=== PATIENT | female | born 2000 | race Hispanic/Latino ===

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

== ENCOUNTER 2019-11-25 03:01 | Emergency (ER) | payer BC ==
--- OUTSIDE RECORDS SUMMARY | 2019-11-25 03:04 | XMS REPORT | Continuity of Care Document ---
:2000 Author Organization [facility] t Address [address] [place] [address] Dr. Luis [address] [place] [id number] Care Team Providers Name Role Phone Unavailable Unavailable Unavailable Problems This patient has no known problems. Allergies, Adverse Reactions, Alerts This patient has no known allergies or adverse reactions. Medications This patient has no known medications. Procedures This patient has no known procedures. Results This patient has no known results.
[2019-11-25] MEDS ORDERED: KETOROLAC 30 MG/ML INJ ONE (04:30)
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
[2019-11-25 04:53] VITALS: TEMP 98.8
[2019-11-25 04:55] VITALS: O2SAT 99
[2019-11-25 04:56] VITALS: BP 112/89
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
== END 2019-11-25 04:49 | disposition home or self-care (01) ==
LOC: ER 03:01
DX: S02.2XXA Fracture of nasal bones, initial encounter for closed fracture (principal); S00.93XA Contusion of unspecified part of head, initial encounter; Y04.2XXA Assault by strike against or bumped into by another person, initial encounter; Y93.9 Activity, unspecified; Y92.9 Unspecified place or not applicable
CPT/HCPCS: 70450; 70486; 76377; 99284

== ENCOUNTER 2022-05-21 21:03 | Emergency (ER) | payer SELFPAY ==
--- OUTSIDE RECORDS SUMMARY | 2022-05-21 21:06 | XMS REPORT | Continuity of Care Document ---
:2000 Author Organization [facility] t Address [address] [place] [address] Dr. Luis [address] [place] [id number] Care Team Providers Name Role Phone Unavailable Unavailable Unavailable Problems This patient has no known problems. Allergies, Adverse Reactions, Alerts This patient has no known allergies or adverse reactions. Medications This patient has no known medications. Procedures This patient has no known procedures. Results This patient has no known results.
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
[2022-05-21] MEDS ORDERED: LIDOCAINE VISCOUS 2% SOLN 15 ML UDC ONE ×2 (22:15→22:20)
[2022-05-21] MEDS ORDERED: TDAP (DIPHTH,PERTUSS(ACELL),TET VAC) 0.5 ML VIAL IMVAC ONE (22:20)
--- NOTE | 2022-05-21 23:28 | EDPHYS ---
Physician Documentation [facility] Name: Troy Hinds Age: 22 yrs Sex: Female : 2000 Arrival Date: 05/21/2022 Time: 21:05 Bed 24 Private MD: ED Physician Dilip Champagne HPI: 05/21 22:15 This 22 yrs old Female presents to ER via Ambulatory with complaints of Head kb Injury With LOC-Adult. 22:15 The patient or guardian reports a laceration, 3 cm(s), clean, pain. The complaints kb affect the left frontal area. Context of injury: The problem was sustained at home, resulted from a direct blow. Onset: The symptoms/episode began/occurred just prior to arrival. Associated signs and symptoms: Loss of consciousness: This patient experience a loss of consciousness, that was brief, Pertinent positives: loss of conciousness. Severity of symptoms: At their worst the symptoms were mild, in the emergency department the symptoms are unchanged. The patient has not experienced similar symptoms in the past. The patient has not recently seen a physician. Pt reports she was getting the sweetie tree out of the attic when she was startled and jumped hitting her head on a nail. Reports she pulled the nail out and might have had brief loc. . 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 - Social history:: Smoking status: Patient denies any tobacco usage or history of. ROS: 22:14 Constitutional: Negative for fever, chills, and weight loss. kb 22:14 Skin: Positive for laceration(s), of the left frontal area. 22:14 Neuro: Positive for loss of consciousness. 22:14 All other systems are negative. Exam: 22:14 Constitutional: This is a well developed, well nourished patient who is awake, alert, kb and in no acute distress. Head/Face: Normocephalic, atraumatic. Eyes: Pupils equal round and reactive to light, extra-ocular motions intact. Lids and lashes normal. Conjunctiva and sclera are non-icteric and not injected. Cornea within normal limits. Periorbital areas with no swelling, redness, or edema. ENT: Moist Mucous membranes Cardiovascular: Regular rate and rhythm with a normal S1 and S2. No gallops, murmurs, or rubs. No pulse deficits. Respiratory: Respirations even and unlabored. No increased work of breathing. Talking in full sentences Abdomen/GI: Soft, non-tender. No distention MS/ Extremity: Pulses equal, no cyanosis. Neurovascular intact. Full, normal range of motion. Neuro: Awake and alert, GCS 15, oriented to person, place, time, and situation. Moves all extremities. Normal gait. Psych: Awake, alert, with orientation to person, place and time. Behavior, mood, and affect are within normal limits. 22:14 Skin: injury, laceration(s), the wound is approximately 3 cm(s), of the left frontal area, that can be described as clean, no foreign body, linear, without bleeding. Vital Signs: 21:58 BP 116 / 81; Pulse 81; Resp 16 S; Temp 99.1(O); Pulse Ox 100% on R/A; Weight 58.97 kg bb (R); Height 5 ft. 4 in. (162.56 cm) (R); Pain 10/10; 23:00 BP 124 / 76; Pulse 78; Resp 18; Pulse Ox 100% on R/A; em6 21:58 Body Mass Index 22.31 (58.97 kg, 162.56 cm) bb Stinnett Coma Score: 21:58 Eye Response: spontaneous(4). Verbal Response: oriented(5). Motor Response: obeys bb commands(6). Total: 15. 22:15 Eye Response: spontaneous(4). Verbal Response: oriented(5). Motor Response: obeys kb commands(6). Total: 15. 22:15 Eye Response: spontaneous(4). Verbal Response: oriented(5). Motor Response: obeys kb commands(6). Total: 15. Trauma Score (Adult): 21:58 Eye Response: spontaneous(1); Verbal Response: oriented(1); Motor Response: obeys bb commands(2); Systolic BP: > 89 mm Hg(4); Respiratory Rate: 10 to 29 per min(4); Marichuy Score: 15; Trauma Score: 12 Laceration: 23:26 Wound Repair of 3cm ( 1.2in ) subcutaneous laceration to left frontal area. Linear kb shaped.. Distal neuro/vascular/tendon intact. Wound prep: Extensive cleansing with hibiclenz by nurse, Wound irrigation with saline by nurse. Skin closed with 3 1-0 Carlos using staple gun. Patient tolerated well. MDM: 21:32 Patient medically screened. kb 22:15 Data reviewed: vital signs, nurses notes. Data interpreted: Pulse oximetry: on room air kb is 100 %. Interpretation: normal. Counseling: I had a detailed discussion with the patient and/or guardian regarding: the historical points, exam findings, and any diagnostic results supporting the discharge/admit diagnosis, radiology results, the need for outpatient follow up, a family practitioner, to return to the emergency department if symptoms worsen or persist or if there are any questions or concerns that arise at home. 05/21 21:26 Order name: CT Head Brain wo Cont; Complete Time: 22:14 bb 05/21 22:14 Order name: Wound Care; Complete Time: 22:38 kb Administered Medications: 22:25 Drug: Tetanus-Diphtheria Toxoid Adult 0.5 ml {Jewel Bearing [employer]: [employer] ([employer]). Exp: em6 12/20/2022. Lot #: [id number]. } Route: IM; Site: right deltoid; 23:00 Follow up: Response: No adverse reaction em6 22:27 Drug: Lidocaine Gel 2 % 1 application Route: Mucous Membrane; em6 23:00 Follow up: Response: No adverse reaction em6 23:26 Drug: Ibuprofen 600 mg Route: PO; em6 23:37 Follow up: Response: No adverse reaction em6 Disposition: 05/22 00:44 Co-signature as Attending Physician, Dilip Champagne MD I agree with the assessment and kdr plan of care. Disposition Summary: 05/21/22 23:27 Discharge Ordered Location: Home kb Condition: Stable kb Diagnosis - Unspecified injury of head, initial encounter kb - Laceration without foreign body of scalp kb Followup: kb - With: Emergency Department - When: As needed - Reason: Worsening of condition Followup: kb - With: Private Physician - When: 2 - 3 days - Reason: Recheck today's complaints, Continuance of care, Re-evaluation by your physician Discharge Instructions: - Discharge Summary Sheet kb - Laceration Care, Adult, [id number] kb - Head Injury, Adult, [id number] kb Forms: - Medication Reconciliation Form kb - Thank You Letter kb - Antibiotic Education kb - Prescription Opioid Use kb Signatures: Dispatcher [employer] EDMS Dhara Umanzor, AIRPLANE PILOT SUPERVISOR-C AIRPLANE PILOT SUPERVISOR-Dilip Chavez MD MD kdr Ballard, Brenda RN RN Ayesha Faye RN RN em6
--- NOTE | 2022-05-21 23:28 | ER ---
Nurse's Notes [facility] Name: Troy Hinds Age: 22 yrs Sex: Female : 2000 Arrival Date: 05/21/2022 Time: 21:05 Bed 24 Private MD: Diagnosis: Unspecified injury of head, initial encounter;Laceration without foreign body of scalp Presentation: 05/21 21:58 Chief complaint: Patient states: she was in the attic trying to get down her xmas tree bb jumped up and hit her head on a nail causing her to pass out. Care prior to arrival: None. Mechanism of Injury: Fall from standing position. Trauma event details: Injury occurred in the [facility], Injury occurred: at home. Injury occurred: May 21, 2022. 21:58 Acuity: STEPHEN 3 bb 21:58 Method Of Arrival: Ambulatory bb 22:00 Coronavirus screen: At this time, the client does not indicate any symptoms associated bb with coronavirus-19. Ebola Screen: No symptoms or risks identified at this time. Initial Sepsis Screen: Does the patient meet any 2 criteria? No. Patient's initial sepsis screen is negative. Does the patient have a suspected source of infection? No. Patient's initial sepsis screen is negative. Risk Assessment: Do you want to hurt yourself or someone else? Patient reports no desire to harm self or others. Onset of symptoms was May 21, 2022. 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 - Social history:: Smoking status: Patient denies any tobacco usage or history of. Screenin:58 Abuse screen: Denies threats or abuse. Tuberculosis screening: No symptoms or risk bb factors identified. 22:05 [facility] ED Fall Risk Assessment (Adult) History of falling in the last 3 months, em6 including since admission Yes- single mechanical fall (1 pt) Confusion or Disorientation No (0 pts) Intoxicated or Sedated No (0 pts) Impaired Gait No (0 pts) Mobility Assist Device Used No (0 pt) Altered Elimination No (0 pt) Score/Fall Risk Level 0 - 2 = Low Risk Oriented to surroundings, Maintained a safe environment, Educated pt \T\ family on fall prevention, incl call for assistance when getting out of bed, Assessed \T\ reinforced patient's understanding of fall precautions, Hourly rounding (assess needs \T\ fall precautionary measures) done, Used ambulatory aids as needed (educated on \T\ assisted with). Nutritional screening: No deficits noted. Fall Risk Total Lomas Fall Scale indicates No Risk (0-24 pts). Primary Survey: 21:58 NO uncontrolled hemorrhage observed. A: The client is awake and alert. The airway is bb patent. Breathing/Chest: Spontaneous respiratory effort, equal unlabored respirations, breath sounds clear bilaterally, regular pattern, symmetrical chest rise and fall. Circulation: No external hemorrhage present. Regular and strong central pulse, skin warm/dry/normal color. Disability Client is alert. 22:05 Exposure/Environment: There is no evidence of uncontrolled external bleeding. Obvious em6 injury(ies) are noted at this time: laceration in the parietal area of cranial. no bleeding noted. dry blood noted. A warming method has been applied: A warm blanket has been provided to the patient. Reassessment Alertness and Airway: Awake and alert. The airway is patent. Airway Patent Breathing: Spontaneous respiratory effort, equal unlabored respirations, breath sounds clear bilaterally, regular pattern with symmetrical chest rise and fall. Respiratory effort Spontaneous Unlabored Breath sounds Clear Respiratory pattern Regular Chest inspection Symmetrical Circulation: No external hemorrhage noted. Regular and strong central pulse, skin warm/dry/normal color. Pulses Palpable Disability: Pupils Pupils are equal, round, reactive to light and accomodation. Secondary Survey: 21:58 HEENT: Head Other bleeding to scalp noted. bb Assessment: 22:05 General: Appears in no apparent distress. Behavior is cooperative. Pain: Complains of em6 pain in back of head Pain does not radiate. Pain currently is 8 out of 10 on a pain scale. Quality of pain is described as stinging. Neuro: Level of Consciousness is awake, alert, obeys commands, Oriented to person, place, time, situation. Cardiovascular: Patient's skin is warm and dry. Respiratory: Airway is patent Respiratory effort is even, unlabored, Respiratory pattern is regular, symmetrical. GI: No signs and/or symptoms were reported involving the gastrointestinal system. : No signs and/or symptoms were reported regarding the genitourinary system. EENT: No signs and/or symptoms were reported regarding the EENT system. Derm: No signs and/or symptoms reported regarding the dermatologic system. Musculoskeletal: Circulation, motion, and sensation intact. Range of motion: intact in all extremities. Injury Description: Laceration sustained to back of head is clean, 0.5 to 2.5 cm long, not bleeding. Vital Signs: 21:58 BP 116 / 81; Pulse 81; Resp 16 S; Temp 99.1(O); Pulse Ox 100% on R/A; Weight 58.97 kg bb (R); Height 5 ft. 4 in. (162.56 cm) (R); Pain 10/10; 23:00 BP 124 / 76; Pulse 78; Resp 18; Pulse Ox 100% on R/A; em6 21:58 Body Mass Index 22.31 (58.97 kg, 162.56 cm) Marichuy Coma Score: 21:58 Eye Response: spontaneous(4). Verbal Response: oriented(5). Motor Response: obeys bb commands(6). Total: 15. 22:15 Eye Response: spontaneous(4). Verbal Response: oriented(5). Motor Response: obeys kb commands(6). Total: 15. 22:15 Eye Response: spontaneous(4). Verbal Response: oriented(5). Motor Response: obeys kb commands(6). Total: 15. Trauma Score (Adult): 21:58 Eye Response: spontaneous(1); Verbal Response: oriented(1); Motor Response: obeys bb commands(2); Systolic BP: > 89 mm Hg(4); Respiratory Rate: 10 to 29 per min(4); Marichuy Score: 15; Trauma Score: 12 ED Course: 21:05 Patient arrived in ED. [id number] 21:14 [facility]ara Umanzor [facility]NP-C [facility]. kb 21:14 Dilip Champagne MD is Attending Physician. kb 21:51 CT Head Brain wo Cont In Process Unspecified. EDMS 21:58 Triage completed. bb 21:58 Patient has correct armband on for positive identification. bb 21:58 Patient maintains SpO2 saturation greater than 95% on room air. bb 22:01 Arm band placed on Patient placed in an exam room, on a stretcher, on pulse oximetry. bb Family accompanied patient. 22:02 Ayesha Soriano, RN is Primary Nurse. em6 22:05 Thermoregulation: warm blanket given to patient. em6 23:29 No provider procedures requiring assistance completed. Patient did not have IV access em6 during this emergency room visit. Administered Medications: 22:25 Drug: Tetanus-Diphtheria Toxoid Adult 0.5 ml {Automation And Control Engineer: [employer] ([employer] Exp: em6 12/20/2022. Lot #: [id number]. } Route: IM; Site: right deltoid; 23:00 Follow up: Response: No adverse reaction em6 22:27 Drug: Lidocaine Gel 2 % 1 application Route: Mucous Membrane; em6 23:00 Follow up: Response: No adverse reaction em6 23:26 Drug: Ibuprofen 600 mg Route: PO; em6 23:37 Follow up: Response: No adverse reaction em6 Medication: 22:42 Vaccine Information Statement (VIS) provided today. Questions and/or concerns em6 addressed. VIS edition date: January 11, 2021. Intake: 21:58 PO: 0ml; Total: 0ml. bb Outcome: 23:27 Discharge ordered by . kb 23:29 Condition: stable em6 23:29 Patient's length of stay in the Emergency Department was greater than 2 hours. need of em6 sutures Patient's length of stay extended due to 23:36 Discharged to home ambulatory. em6 23:36 Discharge instructions given to patient, Instructed on discharge instructions, follow up and referral plans. wound care, Demonstrated understanding of instructions, follow-up care, wound care. 23:38 Patient left the ED. em6 Signatures: Dispatcher [employer] Dhara Barger, QUALITY ASSURANCE COACH-C QUALITY ASSURANCE COACH-Maxine Murphy, AMADO RN bb Terri PatiñojAyesha Edwards, RN RN em6
[2022-05-21] MEDS ORDERED: IBUPROFEN 200 MG TAB PO ONE (23:29)
[2022-05-21] MEDS ORDERED: IBUPROFEN 400 MG TAB ONE (23:29)
[2022-05-21 23:42] VITALS: TEMP 99.1; O2SAT 100
[2022-05-21 23:44] VITALS: BP 124/76
== END 2022-05-21 23:38 | disposition home or self-care (01) ==
LOC: ER 21:03
PROC: 0JQ10ZZ Repair Face Subcutaneous Tissue and Fascia, Open Approach (ICD-10-PCS; principal; 2022-05-21)
DX: S01.81XA Laceration without foreign body of other part of head, initial encounter (principal)
CPT/HCPCS: 70450